=== PATIENT | male | born 1980 | race Caucasian/White ===

== ENCOUNTER 2017-09-03 12:17 | Emergency (ER) | payer SELFPAY ==
[~2017-09-03] VITALS: Ht 198.1 cm; Wt 125.0 kg
[~2017-09-03 12:17] MED LIST: Z.0.NO CURRENT MEDS
[2017-09-03 12:30] VITALS: BP 180/94; PULSE 76; RESP 16; TEMP 97.3; O2SAT 100
[2017-09-03] MEDS ORDERED: SODIUM CHLOR 0.9% 1000 ML INJ 1,000 ML IV SCH (12:41)
[2017-09-03] MEDS ORDERED: HYDROmorphone HCL PF 1 MG/ML VIAL IVS ONE (12:45)
[2017-09-03] MEDS ORDERED: PROCHLORPERAZINE INJ 10 MG/2 ML VIAL IV PUSH ONE (12:45)
[2017-09-03 12:46] LABS: BILIRUBIN, URINE NEG (NEG); BLOOD, URINE LARGE (NEG); GLUCOSE,URINE NEG (NEG); KETONE, URINE TRACE mg/dL (NEG); NITRITE,URINE NEG (NEG); URINE COLOR YELLOW (YELLW/STRAW); URINE LEUKOCYTE ESTERASE NEG (NEG)
--- NOTE | 2017-09-03 12:47 | PD ---
HPI Chief Complaint: Flank/Kidney Pain Time Seen by Provider: 12:34 Travel History International Travel<30 days: No Contact w/Intl Traveler<30days: No History of Present Illness HPI Patient presents to the emergency department complaining of right flank pain 2- 2 and half hours, new onset. Has a family history of kidney stones. He denies hematuria or fever but reports chills, nausea, vomiting (vomited food, last episode 1 hour ago). Also reports "bladder pain." Patient states that he had 3 -4 beers on yesterday. PFSH Past Medical History Heart Rhythm Problems: Yes (SVT) Diminished Hearing: No Social History Alcohol Use: Yes (2-3/WEEK) Tobacco Use: No Substance Use: No Allergies-Medications (Allergen,Severity, Reaction): Coded Allergies: No Known Allergies (Verified Adverse Reaction, Unknown, 09/03/17) Reported Meds & Prescriptions Reported Meds & Active Scripts Active [facility] (Hydrocodone-Acetaminophen) 5 Mg-325 Mg Tab 1 Tab PO Q6H PRN 1 Days Flomax (Tamsulosin HCl) 0.4 Mg Cap 0.4 Mg PO HS 14 Days Reported Omeprazole 20 Mg Tab 20 Mg PO DAILY Metoprolol Tartrate 75 Mg Tab 75 Mg PO BID Review of Systems Except as stated in HPI: all other systems reviewed are Neg Physical Exam Narrative GENERAL: In obvious discomfort, diaphoretic. SKIN: Diaphoretic. HEAD: Atraumatic. Normocephalic. EYES: Extraocular muscles intact bilaterally. No scleral icterus. No injection or drainage. ENT: No nasal bleeding or discharge. Mucous membranes pink and moist. NECK: Trachea midline. No JVD. CARDIOVASCULAR: Regular rate and rhythm. No murmur appreciated. RESPIRATORY: No accessory muscle use. Clear to auscultation. Breath sounds equal bilaterally. GASTROINTESTINAL: Abdomen soft, non-tender, nondistended. Hepatic and splenic margins not palpable. Right CVA tenderness. MUSCULOSKELETAL: No obvious deformities. No clubbing. No cyanosis. No edema. NEUROLOGICAL: Awake and alert. No obvious cranial nerve deficits. Motor grossly within normal limits. Normal speech. PSYCHIATRIC: Appropriate mood and affect; insight and judgment normal. Data Data Last Documented VS Vital Signs Date Time Temp Pulse Resp B/P (MAP) Pulse Ox O2 Delivery O2 Flow Rate FiO2 09/03/17 14:50 16 09/03/17 13:56 78 153/86 (108) 100 Room Air 09/03/17 12:30 97.3 Orders Orders Urinalysis - C+S If Indicated (09/03/17 12:19) Complete Blood Count With Diff (09/03/17 12:41) Comprehensive Metabolic Panel (09/03/17 12:41) Prothrombin Time / Inr (Pt) (09/03/17 12:41) Act Partial Throm Time (Ptt) (09/03/17 12:41) Ct Abd/Pel W/O Iv Contrast (09/03/17 12:41) Iv Access Insert/Monitor (09/03/17 12:41) Ecg Monitoring (09/03/17 12:41) Oximetry (09/03/17 12:41) Sodium Chlor 0.9% 1000 Ml Inj (Ns 1000 M (09/03/17 12:41) Sodium Chloride 0.9% Flush (Ns Flush) (09/03/17 12:45) Hydromorphone Pf Inj (Dilaudid Pf Inj) (09/03/17 12:45) Prochlorperazine Inj (Compazine Inj) (09/03/17 12:45) Hydromorphone Pf Inj (Dilaudid Pf Inj) (09/03/17 13:00) Lipase (09/03/17 13:35) Ketorolac Inj (Toradol Inj) (09/03/17 13:45) Labs Laboratory Tests Test 09/03/17 12:35 09/03/17 12:45 Urine Collection Type CLEAN CATCH Urine Color YELLOW Urine Turbidity SL CLOUDY Urine pH 7.0 Urine Specific [place] 1.015 Urine Protein 30 mg/dL Urine Glucose (UA) NEG mg/dL Urine Ketones TRACE mg/dL Urine Occult Blood LARGE Urine Nitrite NEG Urine Bilirubin NEG Urine Urobilinogen 0.2 MG/DL Urine Leukocyte Esterase NEG Urine RBC 50-99 /hpf Urine Squamous Epithelial Cells 0-5 /hpf Urine Amorphous Sediment FEW Urine Bacteria OCC /hpf Microscopic Urinalysis Comment CULT NOT INDICATED Urine Collection Time 1235 White Blood Count 5.8 TH/MM3 Red Blood Count 4.75 MIL/MM3 Hemoglobin 14.2 GM/DL Hematocrit 41.7 % Mean Corpuscular Volume 87.9 FL Mean Corpuscular Hemoglobin 29.9 PG Mean Corpuscular Hemoglobin Concent 34.0 % Red Cell Distribution Width 12.4 % Platelet Count 238 TH/MM3 Mean Platelet Volume 7.9 FL Neutrophils (%) (Auto) 63.9 % Lymphocytes (%) (Auto) 25.7 % Monocytes (%) (Auto) 7.1 % Eosinophils (%) (Auto) 2.2 % Basophils (%) (Auto) 1.1 % Neutrophils # (Auto) 3.7 TH/MM3 Lymphocytes # (Auto) 1.5 TH/MM3 Monocytes # (Auto) 0.4 TH/MM3 Eosinophils # (Auto) 0.1 TH/MM3 Basophils # (Auto) 0.1 TH/MM3 CBC Comment DIFF FINAL Differential Comment Prothrombin Time 9.6 SEC Prothromb Time International Ratio 0.9 RATIO Activated Partial Thromboplast Time 23.8 SEC Blood Urea Nitrogen 18 MG/DL Creatinine 1.10 MG/DL Random Glucose 134 MG/DL Total Protein 8.7 GM/DL Albumin 4.5 GM/DL Calcium Level 9.5 MG/DL Alkaline Phosphatase 94 U/L Aspartate Amino Transf (AST/SGOT) 52 U/L Alanine Aminotransferase (ALT/SGPT) 125 U/L Total Bilirubin 0.5 MG/DL Sodium Level 141 MEQ/L Potassium Level 4.3 MEQ/L Chloride Level 108 MEQ/L Carbon Dioxide Level 24.4 MEQ/L Anion Gap 9 MEQ/L Estimat Glomerular Filtration Rate 76 ML/MIN Lipase 147 U/L [facility] Medical Decision Making Medical Screen Exam Complete: Yes Emergency Medical Condition: Yes Interpretation(s) Labs: Elevated AST and ALT (patient reports drinking last night);urinalysis+ ketones, bd, protein, occasional bacteria Last Impressions Abdomen/Pelvis CT 09/03/17 1241 Signed Impressions: Service Date/Time: Sunday, September 03, 2017 13:53 - CONCLUSION: Faint 1-2 mm stone Right UVJ with mild obstruction could be uric acid stone. No residual stones in either kidney. Kevin Rojas MD FACR Differential Diagnosis UTI, kidney stone, pancreatitis, appendicitis Narrative Course Patient presents to the emergency department with acute onset of right flank pain. We will check CBC, chemistry, UA with culture sensitivity, and CT abdomen pelvis without contrast. Will give only IV normal saline, 1 mg Dilaudid , and 10 mg IV Compazine. 1400: Patient given 15mg IV toradol. 1534: Patient reports feeling better. Diagnosis Primary Impression: Kidney stone on right side Referrals: Pancho Gutierrez DO Patient Instructions: General Instructions, Kidney Stones (ED) Additional Instructions: 1. Increase hydration. 2. Return to ER for fever, vomiting, inability to urinate , or for any new/worrisome/worsening symptoms. 3. Follow-up with primary care doctor and urology within 24-48 hours. Med/Other Pt SpecificInfo: Prescription(s) given Scripts Hydrocodone-Acetaminophen ([facility]) 5 Mg-325 Mg Tab 1 TAB PO Q6H Y for PAIN for 1 Day, #4 TAB 0 Refills Prov: Rica Bentley MD 09/03/17 Tamsulosin (Flomax) 0.4 Mg Cap 0.4 MG PO HS for Manage Prostate Problems for 14 Days, #14 CAP 0 Refills Prov: Rica Bentley MD 09/03/17 Disposition: 01 DISCHARGE HOME Condition: Stable Rica Bentley MD September 03, 2017 12:46
[2017-09-03 12:53] LABS: AMORPHOUS SEDIMENT, URINE FEW; BACTERIA, URINE OCC /hpf; SQUAMOUS EPITHELIAL CELL URINE 0-5 /hpf (0-5)
[2017-09-03] MEDS: SODIUM CHLORIDE 0.9% FLUSH 10 ML FLUSH IV FLUSH PRN ×2 (12:55→13:51)
[2017-09-03] MEDS ORDERED: HYDROmorphone HCL PF 4 MG/ML VIAL IV PUSH ONE (13:00)
[2017-09-03 13:03] VITALS: RESP 16; O2SAT 100
[2017-09-03 13:05] LABS: AUTOMATED NEUTROPHIL # 3.7 TH/MM3 (1.8-7.7); BASOPHIL # 0.1 TH/MM3 (0-0.2); BASOPHIL % 1.1 % (0.0-2.0); EOSINOPHIL # 0.1 TH/MM3 (0-0.4); EOSINOPHIL % 2.2 % (0.0-4.0); HEMATOCRIT 41.7 % (39.0-51.0); HEMOGLOBIN 14.2 GM/DL (13.0-17.0); LYMPH % 25.7 % (9.0-44.0); LYMPHOCYTE # 1.5 TH/MM3 (1.0-4.8); MEAN CELL VOLUME 87.9 FL (80.0-100.0); MEAN CORPUSCULAR HEMOGLOBIN 29.9 PG (27.0-34.0); MEAN PLATELET VOLUME 7.9 FL (7.0-11.0); MONO % 7.1 % (0.0-8.0); MONOCYTE # 0.4 TH/MM3 (0-0.9); NEUT % 63.9 % (16.0-70.0); PLATELET COUNT 238 TH/MM3 (150-450); RED BLOOD COUNT 4.75 MIL/MM3 (4.50-5.90); RED CELL DISTRIBUTION WIDTH 12.4 % (11.6-17.2); WHITE BLOOD COUNT 5.8 TH/MM3 (4.0-11.0)
[2017-09-03] MEDS ORDERED: OMEP20TA93 PO (13:07)
[2017-09-03] MEDS ORDERED: METO-426 PO (13:07)
[2017-09-03 13:14] LABS: CHLORIDE 108 MEQ/L (98-107); SODIUM (NA) 141 MEQ/L (136-145)
[2017-09-03 13:17] LABS: ALBUMIN 4.5 GM/DL (3.4-5.0); BICARBONATE 24.4 MEQ/L (21.0-32.0); CALCIUM 9.5 MG/DL (8.5-10.1)
[2017-09-03 13:18] LABS: BLOOD UREA NITROGEN 18 MG/DL (7-18); GLUCOSE,RANDOM 134 MG/DL (74-106); INTERNATIONAL NORMALIZED RATIO 0.9 RATIO; PROTHROMBIN TIME - PATIENT 9.6 SEC (9.8-11.6)
[2017-09-03 13:20] LABS: ALT (GPT) 125 U/L (12-78)
[2017-09-03 13:21] LABS: AST (GOT) 52 U/L (15-37); GLOMERULAR FILTRATION RATE 76 ML/MIN (>89)
[2017-09-03 13:22] LABS: TOTAL BILIRUBIN ADULT 0.5 MG/DL (0.2-1.0); TOTAL PROTEIN 8.7 GM/DL (6.4-8.2)
[2017-09-03 13:23] LABS: ALKALINE PHOSPHATASE 94 U/L (45-117)
[2017-09-03 13:30] VITALS: BP 161/94; PULSE 83; RESP 16
[2017-09-03] MEDS ORDERED: KETOROLAC TROMETHAMINE 30 MG/ML (IVP) VIAL IV PUSH ONE (13:45)
[2017-09-03 13:56] VITALS: BP 153/86; PULSE 78; RESP 16; O2SAT 100
--- NOTE | 2017-09-03 14:23 | RADRPT ---
EXAM DATE/TIME: 09/03/2017 13:53 [place] COMPARISON: No previous studies available for comparison. INDICATIONS : Right flank pain today. ORAL CONTRAST: No oral contrast ingested. RADIATION DOSE: 19.22 CTDIvol (mGy) MEDICAL HISTORY : Hypertension. SURGICAL HISTORY : None. ENCOUNTER: Initial ACUITY: 1 day PAIN SCALE: 9/10 LOCATION: Right flank TECHNIQUE: Volumetric scanning of the abdomen and pelvis was performed. Using automated exposure control and ad justment of the mA and/or kV according to patient size, radiation dose was kept as low as reasonably achievable to obtain optimal diagnostic quality images. DICOM format image data is available electro nically for review and comparison. FINDINGS: Moderate fatty replacement to the liver. Portion the spleen and pancreas visualized unremarkable Gallbladder appears normal Adrenal glands appear normal Right kidney: moderate perinephric stranding with prominent ureter extending down to the right ureterovesical junct ion with 1 mm stone evident. Left kidney unremarkable No ascites or adenopathy Pelvic contents normal CONCLUSION: Faint 1-2 mm stone Right UVJ with mild obstruction could be uric acid stone. No residual stones in either kidney. Kevin Rojas MD FACR on September 03, 2017 at 14:18 Board Certified Radiologist. This report was verified electronically.
[2017-09-03 14:50] VITALS: RESP 16
[2017-09-03] MEDS ORDERED: TAMS5CAP PO (15:35)
[2017-09-03] MEDS ORDERED: NORC5TAB PO (15:40)
== END 2017-09-03 16:09 | disposition home or self-care (01) ==
LOC: PHED 12:17
DX: N20.0 Calculus of kidney (principal); I10 Essential (primary) hypertension
CPT/HCPCS: 74176; 80053; 81001; 83690; 85025; 85610; 85730; 96361; 96374; 96375; 99284; J0780; J1170; J1885; J7030